=== PATIENT | female | born 2000 ===

== ENCOUNTER 2024-01-12 15:24 | Outpatient (REF) | payer MEDICAID, SELFPAY ==
--- NOTE | 2024-01-12 11:25 | PAPFT_PTH ---
PATIENT: Aruna Amaya LOC: [facility] U#:[id number] AGE/SX: 23/F ROOM: RE01/12/[address]: KANDI BUCHANAN : 2000 BED: DIS: 01/12/2024 SPEC #: [id number] RECD: 01/12/24 18:14 STATUS: CIERA REQ #: [id number] ROBERT: 01/12/24 11:[address]: Kandi Buchanan DEPT: [facility] Cytology RECD BY: Vivienne Azul Tissues: 1 - CX/ENDOCX FOR PAP SMEARS Procedures: PAP THIN PREP/[facility] Screening Comments: [id number]
== END 2024-01-12 15:25 | disposition home or self-care (01) ==
LOC: NCHCN 15:24
PROVIDERS: PCP Nurse Practitioner Family; Visit Provider Nurse Practitioner Family
DX: Z00.00 Encounter for general adult medical examination without abnormal findings (principal); Z12.4 Encounter for screening for malignant neoplasm of cervix; Z11.51 Encounter for screening for human papillomavirus (HPV)
CPT/HCPCS: 88142